=== PATIENT | male | born 1995 | race Asian ===

== ENCOUNTER → 2019-08-08 | Outpatient (CLI) | payer OTHER ==
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
== END ==
LOC: RAD 11:24 → EEVIPCON 11:24
PROVIDERS: ATTEND Preventive Medicine Occupational Medicine
DX: S02.609A Fracture of mandible, unspecified, initial encounter for closed fracture (principal); X58.XXXA Exposure to other specified factors, initial encounter; Y93.89 Activity, other specified; Y92.89 Other specified places as the place of occurrence of the external cause; Y99.8 Other external cause status
CPT/HCPCS: 70110